=== PATIENT | male | born 1995 | race Caucasian/White ===

== ENCOUNTER 2021-02-03 15:34 | Emergency (ER) | payer OTHER ==
[~2021-02-03] VITALS: Ht 193 cm; Wt 79.4 kg
[2021-02-03 16:05] VITALS: BP 135/88
== END 2021-02-03 17:30 | disposition home or self-care (01) ==
LOC: M.ERS 15:34
DX: S93.402A Sprain of unspecified ligament of left ankle, initial encounter (principal); F17.220 Nicotine dependence, chewing tobacco, uncomplicated; W17.89XA Other fall from one level to another, initial encounter; Y93.89 Activity, other specified; Y92.89 Other specified places as the place of occurrence of the external cause; Y99.0 Civilian activity done for income or pay